=== PATIENT | male | born 2000 | race Hispanic/Latino ===

== ENCOUNTER 2024-01-28 16:52 | Emergency (ER) | payer SELFPAY ==
[2024-01-28] MEDS ORDERED: Ketorolac Tromethamine 30 MG (1 mL) VIAL ONE (19:24)
== END 2024-01-28 19:35 | disposition home or self-care (01) ==
LOC: CSHERS 16:52
DX: M25.512 Pain in left shoulder (principal); F17.210 Nicotine dependence, cigarettes, uncomplicated
CPT/HCPCS: 96372; J1885